=== PATIENT | female | born 1930 | race Caucasian/White ===

== ENCOUNTER 2016-08-06 14:13 | Outpatient (RCR) | payer MEDICARE, BC | END 2016-11-04 | disposition home or self-care (01) | LOC: WSST | DX: J38.7 Other diseases of larynx (principal); R13.10 Dysphagia, unspecified | CPT/HCPCS: G8996-GN; G8997-GN ==

== ENCOUNTER → 2017-08-23 | Outpatient (REF) | LOC: ZLAB.WCH 08:43 | DX: Z01.89 Encounter for other specified special examinations (principal) ==

== ENCOUNTER → 2017-11-30 | Outpatient (REF) | LOC: ZLAB.WCH 18:02 | DX: Z01.89 Encounter for other specified special examinations (principal) ==

== ENCOUNTER → 2018-07-01 | Outpatient (REF) | LOC: ZLAB.WCH 18:12 | DX: Z01.89 Encounter for other specified special examinations (principal) ==

== ENCOUNTER → 2018-11-21 | Outpatient (REF) | LOC: COL.CARD 16:08 | DX: Z01.818 Encounter for other preprocedural examination (principal) ==

== ENCOUNTER 2020-06-22 15:32 | Observation (INO) | payer BC ==
[~2020-06-22] VITALS: Ht 162.6 cm; Wt 46.3 kg
[2020-06-22 16:08] LABS: MEAN CELL VOLUME 92 fl (80.0-100.0); MEAN CORPUSCULAR HEMOGLOBIN 30 pg (27.0-31.0); MEAN CORPUSCULAR HGB CONC 33 g/dl (33.0-37.0); MEAN PLATELET VOLUME 10.3 fl (7.4-10.4); PLATELET COUNT 326 K/mm3 (130-400); RED BLOOD COUNT 4.36 M/mm3 (4.10-5.30); REDCELL DISTRIBUTION WIDTH-CV 12.8 % (11.5-14.5)
[2020-06-22 16:14] LABS: INR 1.1 (0.8-3.0); PROTHROMBIN TIME 11.8 SECONDS (9.7-12.8)
[2020-06-22 16:22] LABS: BILIRUBIN,TOTAL 1.3 mg/dL (0.0-1.0); C-REACTIVE PROTEIN 5.4 mg/dL (0.0-0.9); CALCIUM 9.8 mg/dL (8.4-10.2); CREATININE, serum 1.09 (0.52-1.25); POTASSIUM 4.6 mmol/L (3.4-5.0); TOTAL PROTEIN 8.5 gm/dL (6.4-8.2)
[2020-06-22 16:32] LABS: TROPONIN-I 0.022 ng/mL (0.000-0.035)
[2020-06-22 16:45] LABS: COLLECTION METHOD CLEAN CATCH
[2020-06-22 16:56] LABS: MUCOUS Present /lpf; PH 5 (5-8); SQUAMOUS EPITHELIAL 0-2 /hpf; URINE APPEARANCE Hazy; URINE BACTERIA None Seen /hpf; URINE BILIRUBIN Negative (NEGATIVE); URINE BLOOD 1+ (NEGATIVE); URINE COLOR Yellow; URINE GLUCOSE Negative (NEGATIVE); URINE KETONE 1+ (NEGATIVE); URINE LEUKOCYTE ESTERASE Negative (NEGATIVE); URINE NITRATE Negative (NEGATIVE); URINE PROTEIN(semi-quant) 1+ (NEGATIVE)
[2020-06-22 16:58] LABS: BAND 4 % (0-10); LYMPHOCYTE 2 % (20.0-51.0); NEUTROPHILS 91 % (42.0-75.2); PLATELET ESTIMATE NORMAL (NORMAL)
[2020-06-22] MEDS ORDERED: MACROBID 1100 MG/CAP PO (18:41)
[2020-06-22] MEDS ORDERED: ATIVAN 0.50.5 MG/TAB PO (18:41)
[2020-06-22] MEDS ORDERED: SYNTHROID0.075 MG/T PO (18:41)
[2020-06-22] MEDS ORDERED: IPRATROPIUM BROM3 M1 IH (18:42)
[2020-06-22] MEDS ORDERED: ZYRTEC 10MG10 MG PO (18:42)
[2020-06-22] MEDS ORDERED: PROTONIX 40MG T40 MG PO (18:43)
--- NOTE | 2020-06-22 20:30 | NUR ---
Patient arrived to medical floor at 2009. Assessment complete. Lungs diminished throughout. Heart sounds normal. No edema noted. INT left AC without complications. IV right AC infusing as ordered. Denies pain. All medications given as ordered. Patient did have difficulty swallowing pills even with pudding and chin tucking. Will request speech evaluation. Orientated to medical floor. All questions answered. Denies needs at this time. Instructed to call for help with ambulating due to oxygen tubing at 2 liters and IV tubing. Will monitor.
[2020-06-22 20:56] VITALS: BP 130/66; PULSE 96; TEMP 97.8
[2020-06-22 21:16] LABS: TSH w REFLEX 0.086 uIU/mL (0.465-4.680)
[2020-06-23] VITALS (7 sets, daily range): BP systolic 103–147; BP diastolic 44–77; PULSE 57–106; TEMP 97.3–98.2
--- NOTE | 2020-06-23 00:15 | NUR ---
Resting in bed. Denies needs. Call light in reach.
--- NOTE | 2020-06-23 03:51 | NUR ---
Resting in bed. Denies needs. Call light in reach.
--- NOTE | 2020-06-23 05:59 | NUR ---
Patient had uneventful night. No chest pain. Resting in bed this Am. Call light in reach.
--- NOTE | 2020-06-23 07:27 | NUR ---
Report given to RAPHAEL Wong
[2020-06-23 07:28] LABS: MEAN CELL VOLUME 93 fl (80.0-100.0); MEAN CORPUSCULAR HGB CONC 33 g/dl (33.0-37.0); MEAN PLATELET VOLUME 10.8 fl (7.4-10.4); PLATELET COUNT 237 K/mm3 (130-400); RED BLOOD COUNT 3.18 M/mm3 (4.10-5.30); REDCELL DISTRIBUTION WIDTH-CV 12.7 % (11.5-14.5)
[2020-06-23 07:34] LABS: HEMATOCRIT 29.7 % (37.0-47.0); HEMOGLOBIN 9.7 g/dl (12.5-16.0); MEAN CORPUSCULAR HEMOGLOBIN 31 pg (27.0-31.0)
[2020-06-23 07:37] LABS: CALCIUM 8.1 mg/dL (8.4-10.2); CHOLESTEROL RISK RATIO 2.6; CREATININE, serum 0.89 (0.52-1.25); POTASSIUM 4.2 mmol/L (3.4-5.0)
[2020-06-23 07:48] LABS: TROPONIN-I 0.018 ng/mL (0.000-0.035)
--- NOTE | 2020-06-23 08:23 | NUR ---
Pt sitting up in bed. Attempted to eat breakfast and started to cough and choke on food. Breakfast was sat to the side. Swallow study to be done today. Witnessed pt take a sip of water and no troubles with swallowing water. IV site CDI running NS.
--- NOTE | 2020-06-23 08:48 | NUR ---
Assessment complete. Patient was coughing after attmepting to eat some scrambbled eggs. She speaking with me and taking breaths in and out. She was anxious and shaken up but I was able to settle her down. I informed her that I was going to take her breakfast and have her not eat until speech therapy sees her, she agreed. IV sites are CD&I. Patient is A&O. No complaints of pain or discomfort. Patient ambulated to the restroom via standby and did well. Patient is now back in bed and is resting, coughing has ceased. No other needs were expressed at this time. Call light is in reach.
[2020-06-23 10:23] LABS: BAND 5 % (0-10); LYMPHOCYTE 7 % (20.0-51.0); NEUTROPHILS 88 % (42.0-75.2); PLATELET ESTIMATE NORMAL (NORMAL)
--- NOTE | 2020-06-23 14:23 | NUR ---
SW met with patient at her bedside. Patient currently lives alone in [facility] with her granddaughter Hernan [phone] as her care support and her EMR. REcords also list Isidra Barnett (granddaughter) [phone] as the person to notify. Patient indicated being independent with ADL's, that she usues 02 literes of oxygen, and she uses a nebulizer. Patient reports that her PCP is Dr. Jerez, and she does not have any upcoming appointments. Patient reports that she gets some of her medications from [place] and some from [place], however she was not able to list the specific agencies. Patient declined any home health services at this time, reporting that she receives services one day a week from [facility] in [place].
--- NOTE | 2020-06-23 16:56 | NUR ---
Patient has had a very uneventful day. She has slept almost all day. Patient was given pudding and jellos to eat for the day as she coughs and chokes on other more solid foods, she was okay with this and states she "isnt very hungry anyways". No complaints of pain or discomfort were reported. IV fluids were moved to R AC Iv site as left became leaky and was removed. Alex wrap was placed around L IV site for comfort. Patient has minimal needs. She is aware of her POC. Granddaughter was in to see her today. No other needs. Call light is in reach.
--- NOTE | 2020-06-23 21:00 | NUR ---
Patient assessed at this time. Alert and oriented x 4, and able to make needs known. Denies having pain and discomfort at this time. Peripheral IV to left AC with NS running per orders. Site is without redness, warmth. swelling, and pain. Reports SOB with exertion, denies at rest. On oxygen at 2 L/min via NC. LS CTA in upper lobes, diminished in lower lobes. Respirations even and unlabored at this time. HRR. Telemetry in place: sinus. capillary refill less than 3 seconds. Non-tenting skin tugor. BSAx4. Abdomen soft and non-tender. No edema. Voices no questions, needs, or concerns at this time. Patient did have difficulty swallowing pills. Took one at a time whole with pudding with water in between. Offered to crush medications in pudding, but declined. Resting in bed with call light within reach at this time.
[2020-06-24 03:46] VITALS: BP 133/75; PULSE 73; TEMP 98.1
--- NOTE | 2020-06-24 05:12 | NUR ---
Patient has been resting in bed with call light within reach. Voices no questions, needs, or concerns at this time. Continues to have difficulty with swalling, feeling like things are "stuck" in throat.
[2020-06-24 06:55] LABS: BASO % 0.1 % (0.0-2.0); GRAN # 10.1 (1.4-6.5); GRAN % 86.9 % (42.2-75.2); LYMPH # 0.7 (1.2-3.4); LYMPH % 6.1 % (20.0-51.0); MEAN CELL VOLUME 96 fl (80.0-100.0); MEAN CORPUSCULAR HGB CONC 32 g/dl (33.0-37.0); MEAN PLATELET VOLUME 10.9 fl (7.4-10.4); MONO # 0.7 (0.1-0.6); MONO % 6.4 % (1.7-9.3); PLATELET COUNT 213 K/mm3 (130-400)
[2020-06-24 06:56] LABS: HEMATOCRIT 27.7 % (37.0-47.0); HEMOGLOBIN 8.8 g/dl (12.5-16.0); MEAN CORPUSCULAR HEMOGLOBIN 30 pg (27.0-31.0)
[2020-06-24 07:13] LABS: CALCIUM 8.1 mg/dL (8.4-10.2); CREATININE, serum 0.95 (0.52-1.25); POTASSIUM 3.9 mmol/L (3.4-5.0)
[2020-06-24 07:25] VITALS: BP 120/58; PULSE 76; TEMP 98.2
[2020-06-24] MEDS ORDERED: PEPCID 20MG TAB20 MG PO (09:11)
--- NOTE | 2020-06-24 10:32 | NUR ---
Initial visit; Jahaira thanked Director [employer] for looking in on her and offering prayer and God's blessings. will follow up.
[2020-06-24 11:57] VITALS: BP 150/69; PULSE 92; TEMP 96.4
--- NOTE | 2020-06-24 13:29 | NUR ---
PT HAD UNEVENTFUL DAY. ST SAW PATIENT AND ASSESSED, STATED THAT THERE WAS NO CHANGE, AND PT SHOULD CONTINUE DIRECTED BY OUTPATIENT ENT. PT STATED SHE DID NOT WANT TO SEE A GI SPECIALIST SHE DOES NOT WANT HER ESOPHAGUS DILATED. HER SWALLOW STUDY DONE IN JUL 2016 INDICATED SOME ESPHAGEAL STRICTURES, HOWEVER PT DID NOT WANT TO FOLLOW UP AND STILL REFUSES AT THIS TIME. DISCUSSED WITH PROVIDER. PT IS DISCHARGED. NO FURTHER CONCERNS.
== END 2020-06-24 13:32 | disposition home or self-care (01) ==
LOC: COL.ER 15:32 → MEDICAL 18:22
PROVIDERS: Emergency Medicine; Nurse Practitioner Family; ADMIT Internal Medicine Pulmonary Disease
DX: J44.9 Chronic obstructive pulmonary disease, unspecified (principal); J96.11 Chronic respiratory failure with hypoxia; R07.89 Other chest pain; R65.10 Systemic inflammatory response syndrome (SIRS) of non-infectious origin without acute organ dysfunction; E03.9 Hypothyroidism, unspecified; I34.0 Nonrheumatic mitral (valve) insufficiency; R13.10 Dysphagia, unspecified; E46 Unspecified protein-calorie malnutrition; Z68.1 Body mass index [BMI] 19.9 or less, adult; Z20.828 Contact with and (suspected) exposure to other viral communicable diseases; Z79.899 Other long term (current) drug therapy; Z87.891 Personal history of nicotine dependence; Z82.49 Family history of ischemic heart disease and other diseases of the circulatory system; Z82.3 Family history of stroke; Z88.2 Allergy status to sulfonamides; Z88.8 Allergy status to other drugs, medicaments and biological substances
CPT/HCPCS: 99223-AI; G0378; J0456; J0696; J1100; J2920; J2930; J7030; J7050; J7512; Q9967

== ENCOUNTER → 2020-07-03 | Outpatient (REF) ==
[~2020-07-03] MED LIST: ATIVAN 0.50.5 MG/TAB PO; IPRATROPIUM BROM3 M1 IH; MACROBID 1100 MG/CAP PO; PEPCID 20MG TAB20 MG PO; PROTONIX 40MG T40 MG PO; SYNTHROID0.075 MG/T PO; ZYRTEC 10MG10 MG PO
== END ==
LOC: COL.CARD 08:50
DX: Z01.818 Encounter for other preprocedural examination (principal)